=== PATIENT | female | born 1955 | race Caucasian/White ===

== ENCOUNTER 2016-10-10 14:41 | Emergency (ER) | payer SELFPAY ==
[~2016-10-10] VITALS: Ht 160 cm; Wt 78.0 kg
[~2016-10-10 14:41] MED LIST: BAYER ADVANCED325 MG PO; MECLIZINE12.5 M1 PO; MULT VITAMIN OR; NO HOME MEDS; PROZAC20 MG PO; SLO-NIACIN500 MG; VIT E SOLUBL400 UNIT
[2016-10-10] MEDS ORDERED: EC ASPIRIN325 MG PO (15:03)
[2016-10-10] MEDS ORDERED: PROZAC10 MG PO (15:03)
[2016-10-10] MEDS ORDERED: ULTRAM50 M1 PO (15:47)
[2016-10-10 16:10] VITALS: BP 129/74
== END 2016-10-10 16:10 | disposition home or self-care (01) | DRG 563 ==
LOC: ED 14:41
DX: S63.502A Unspecified sprain of left wrist, initial encounter (principal); S53.402A Unspecified sprain of left elbow, initial encounter; X50.1XXA Overexertion from prolonged static or awkward postures, initial encounter; X50.0XXA Overexertion from strenuous movement or load, initial encounter; Y93.89 Activity, other specified; Y92.008 Other place in unspecified non-institutional (private) residence as the place of occurrence of the external cause

== ENCOUNTER 2018-10-29 16:28 | Observation (INO) | payer OTHER ==
[~2018-10-29] VITALS: Ht 160 cm; Wt 77.4 kg
[~2018-10-29 16:28] MED LIST changes: +EC ASPIRIN325 MG PO; +PROZAC10 MG PO; +ULTRAM50 M1 PO
--- NOTE | 2018-10-29 16:28 | NUR ---
PT AMBULATORY WITH STAEDY GAIT TO ED ROOM FOR BEDSIDE TRIAGE
[2018-10-29 17:05] LABS: GFR > 60 ML/MIN (>=60 (CALC)); GFR FOR AFR.AMER. > 60 ML/MIN (>=60 (CALC))
[2018-10-29 17:06] LABS: HEMATOCRIT 40.8 % (37.0-47.0); HEMOGLOBIN 13.6 g/dl (12.0-16.0); IMMATURE GRANULOCYTES 0.3 % (0.0-5.0); MEAN CELL VOLUME 90.1 fL CALC (80.0-100.0); MEAN CORPUSCULAR HGB CONC 33.3 g/L CALC (32.0-36.0); NEUT# 4.74 thou/uL (2.00-7.15); RED BLOOD COUNT 4.53 mill/uL (4.20-5.60); RED CELL DISTRI WIDTH 12.8 % (11.5-15.5)
[2018-10-29 17:18] LABS: ANION GAP 13 (6-22 (CALC)); BUN 13 mg/dL (8-23); BUN/CREATININE RATIO 22 (12-20 (CALC)); CARBON DIOXIDE 25 mmol/l (22-30); CHLORIDE 106 mmol/l (95-108); CREATININE 0.6 mg/dL (0.5-1.0); GFR > 60 ML/MIN (>=60 (CALC)); GFR FOR AFR.AMER. > 60 ML/MIN (>=60 (CALC)); POTASSIUM 4.9 mmol/l (3.5-5.1); SODIUM 139 mmol/l (137-146)
[2018-10-29 17:22] LABS: INTERNATIONAL NORMALIZED RATIO 0.9 RATIO (0.7-1.3); PROTHROMBIN TIME 9.7 SECONDS (9.0-12.5)
[2018-10-29 18:01] LABS: URINE BILIRUBIN - DIPSTICK NEGATIVE (NEGATIVE); URINE BLOOD DIPSTICK NEGATIVE (NEGATIVE); URINE COLOR YELLOW; URINE GLUCOSE - DIPSTICK NEGATIVE (NEGATIVE); URINE KETONE NEGATIVE (NEGATIVE); URINE LEUK ESTERASE NEGATIVE (NEGATIVE); URINE NITRITE - DIPSTICK NEGATIVE (Negative); URINE PH 5.5 (4.5-8.0); URINE PROTEIN - DIPSTICK NEGATIVE (NEG-TRACE); URINE UROBILINOGEN - DIPSTICK 0.2 E.U./dL (0.2)
--- NOTE | 2018-10-29 18:04 | NUR ---
RESULTS REVIEWED WITH PT, EXPLANATION OF DIAGNOSES. PT AMBULATORY TO BR WITH STEADY GAIT.
--- NOTE | 2018-10-29 18:55 | NUR ---
PT UP TO BR. REQUESTING FOOD.
--- NOTE | 2018-10-29 19:00 | NUR ---
ALERT/ORIENTED/RESP EASY REG. VSS. SUSAN. SPEECH CLEAR BUT PRESSURED. GRASP = AND STRONG. NO C/O. FEELS NORMAL.
--- NOTE | 2018-10-29 19:10 | NUR ---
LAB HERE TO DRAW REPEAT LACTIC ACID...PT REFUSED DO TO COST.
--- NOTE | 2018-10-29 19:18 | NUR ---
PT BEING READIED FOR THE FLOOR. DISCUSS THE REASON FOR THE REPEAT LACTIC. PT DID NOT WANT IT BECAUSE OF THE COST. AFTER DISCUSSION STATES THAT SHE WANTS IT DONE. PT GIVEN CRACKERS/PEANUT BUTTER/GINGERALE. TALKING ON PHONE. LAB CALLED AND INSTRUCTED TO DO SECOND LACTIC.
--- NOTE | 2018-10-29 19:55 | NUR ---
ATTEMPTED TO CALL REPORT. NURSE NOT AVAILABLE.
--- NOTE | 2018-10-29 21:00 | NUR ---
REPORT ATTEMPTED. BROUGHT FOOD FOR PT
--- NOTE | 2018-10-29 21:16 | NUR ---
REPORT TO DESIREE/MED-SURG
--- NOTE | 2018-10-29 21:16 | NUR ---
PT REMAINS A/O.NO NEURO DEFICITS.
--- NOTE | 2018-10-29 21:24 | NUR ---
TO FLOOR VIA W/C WITH PORTBLE MONITOR
[2018-10-29 21:31] VITALS: BP 129/68
--- NOTE | 2018-10-29 22:00 | NUR ---
PATIENT ADMITTED FROM ER VIA STRETCHER WITH ER STAFF IN ATTENDANCE. PATIENT IS AWAKE ALERT AND ORIENTEDX3. PATIENT IS BEING ADMITTED FOR POSSIBLE TIA. PATIENT DENIES ANY SYMPTOMS AT THIS TIME. STATES THAT SHE WAS HAVING SOME DIFFICULTY YESTERDAY WITH SPEECH-STATES THAT SHE WAS STUTTERING AND HAVING DIFFICULTY WITH SLURRED SPEECH. STATES THAT SHE HAS CHRONIC HEADACHE, AND RIGHT EAR PAIN, BALANCE HAS BEEN OFF AND FEELING DIZZY. DENIES ANY OF THESE SX AT THIS TIME. PATIENT WITH EQUAL STROG HAND GRASP. LEDA IS WNL. LEAH.PATIENT WITH SOME ANXIETY. SALINE LOCK TO LEFT HAND INTACT-FLUSHED PER PROTOCOL WITH SALINE FLUSH. PATIENT MEDICATED WITH TYLENOL 650MG PO FOR HEADACHE AND WITH SONATA 5MG PO FOR SLEEP. PATIENT REFUSING IVF AT THIS TIME-STATES THAT SHE DOESN'T NEED THOSE AND I"M GOING HOME FIRST THING IN THE MORNING. PATIENT ORIENTED TO ROOM AND SURROUNDINGS. INSTRUCTED ONUSE OF NURSE CALL LIGHT SYSTEM, TV REMOTE AND PHONE. PROVIDED PATIENT WITH HS SNACK. CALL LIGHT IN REACH. WILL CONT TO CHASTITY.
[2018-10-29 23:51] VITALS: BP 100/59
--- NOTE | 2018-10-30 01:01 | NUR ---
PATIENT APPEARS SLEEPING WITH EYES CLOSED. RESP ARE EVEN AND UNLABORED. TELE MONITOR IN PLACE. CALL LIGHT IN REACH. WILL CONT TO MONITOR.
--- NOTE | 2018-10-30 03:22 | NUR ---
APPEARS SLEEPING AT THIS TIME WITH EYES CLOSED. TELE MONITOR IN PLACE. CALL LIGHT IN REACH. WILL CONT TO MONITOR.
[2018-10-30 04:17] VITALS: BP 90/43
[2018-10-30 06:19] LABS: CHOLESTEROL HDL RATIO 3.9 (<4.4 (CALC))
--- NOTE | 2018-10-30 07:00 | NUR ---
PT REPORT RECIEVED FROM DESIREE.RANDY. PT RESTING. NO S/S OF DISTRESS. CALL LIGHT IN REACH. WILL CONTINUE TO MONITOR.
[2018-10-30 07:46] VITALS: BP 112/64
[2018-10-30 08:29] VITALS: BP 124/65
--- NOTE | 2018-10-30 08:29 | NUR ---
PT A/O X3. SPEECH IS CLEAR. RESP EVEN AND UNLABORED. LUNG SOUNDS CLEAR. TELE IN PLACE. BOWEL SOUNDS ACTIVE X4. STRONG RADIAL AND PEDAL PULSES. #22 LH SL. FLUSHED AND PATENT. SITE APPEARS HEALTHY. PT DENIES ANY PAIN OR NEEDS. POC DISCUSSED. SAFETY PRECAUTIONS IN PLACE. CALL LIGHT IN REACH. WILL CONTINUE TO MONITOR.
[2018-10-30 11:35] VITALS: BP 98/58
[2018-10-30] MEDS ORDERED: FLONASE AL50 MCG/ACT NAB (11:53)
[2018-10-30] MEDS ORDERED: ZYRTEC10 MG PO (11:53)
[2018-10-30] MEDS ORDERED: ZPAK PO (11:53)
[2018-10-30] MEDS ORDERED: ELAVIL10 MG PO (11:53)
--- NOTE | 2018-10-30 12:26 | NUR ---
PT EATING LUNCH. NO C/O PAIN OR NEEDS. CALL LIGHT IN REACH. WILL CONTINUE TO MONITOR.
--- NOTE | 2018-10-30 13:04 | NUR ---
D/C INTRUCTIONS DISCUSSED W/ PT. PT STATES UNDERSTANDING. IV REMOVED. CATHETER INTACT. TELE REMOVED. PT GETTING DRESSED.
--- NOTE | 2018-10-30 13:24 | NUR ---
Discharge instructions given. Patient verbalizes understanding of same. Discharged in stable condition via Wheelchair to Home with spouse. All belongings sent with pt.
== END 2018-10-30 13:24 | disposition home or self-care (01) | DRG 69 ==
LOC: ED 16:28 → ED-I 18:23 → ED 18:36 → MS2 18:37
PROVIDERS: Family Medicine; ADMIT Internal Medicine; ATTEND Internal Medicine
DX: G45.9 Transient cerebral ischemic attack, unspecified (principal); G43.909 Migraine, unspecified, not intractable, without status migrainosus; J32.9 Chronic sinusitis, unspecified; H66.93 Otitis media, unspecified, bilateral; I10 Essential (primary) hypertension; I48.91 Unspecified atrial fibrillation; F32.9 Major depressive disorder, single episode, unspecified; F41.9 Anxiety disorder, unspecified; Z86.73 Personal history of transient ischemic attack (TIA), and cerebral infarction without residual deficits
CPT/HCPCS: A9579; Q9967